=== PATIENT | male | born 1995 | race Caucasian/White ===

== ENCOUNTER 2020-07-09 06:18 | Emergency (ER) | payer BC, OTHER ==
[2020-07-09 06:45] VITALS: BP 128/84; PULSE 65
--- NOTE | 2020-07-09 07:35 | EDM.PDOC ---
ED HPI GENERAL MEDICAL PROBLEM - General Chief Complaint: Eye Problems Stated Complaint: L EYE SWOLLEN/RED Time Seen by Provider: 07/09/20 07:26 - History of Present Illness INITIAL COMMENTS - FREE TEXT/NARRATIVE: 24-year-old male presents the emergency room with eye discomfort. This started a couple days ago and some irritation to his left eye. He is noticed increased tearing from the eye. No purulent drainage. He cannot recall getting foreign body in his eye. His right eye is normal. Patient states he has had some upper airway congestion and a runny nose. Left Eye Pain Score (Numeric/FACES): 1 - Related Data Allergies Allergy/AdvReac Type Severity Reaction Status Date / Time No Known Allergies Allergy Verified 07/09/20 06:45 Home Meds: Home Meds Gentamicin [Garamycin 0.3% Ophth Soln] 5 ml EYELF ASDIRECTED #1 bottle 07/09/20 [Rx] Past Medical History - Past Health History Medical/Surgical History: Denies Medical/Surgical History Musculoskeletal History: Reports: Back Pain, Chronic - Infectious Disease History Infectious Disease History: Reports: MRSA, Other (See Below) Other Infectious Disease History: right knee - Past Surgical History Male Surgical History: Reports: Circumcision Social & Family History - Tobacco Use Smoking Status *Q: Never Smoker Second Hand Smoke Exposure: No - Caffeine Use Caffeine Use: Reports: None - Recreational Drug Use Recreational Drug Use: Yes Recreational Drug Type: Reports: Marijuana/Hashish Recreational Drug Use Frequency: Binges ED ROS GENERAL - Review of Systems Review Of Systems: See Below Constitutional: Reports: No Symptoms HEENT: Reports: Eye Discharge, Rhinitis Respiratory: Reports: No Symptoms Cardiovascular: Reports: No Symptoms GI/Abdominal: Reports: No Symptoms : Reports: No Symptoms Neurological: Reports: No Symptoms ED EXAM GENERAL W FULL EYE - Physical Exam Exam: See Below Exam Limited By: No Limitations General Appearance: Alert, No Apparent Distress Eye Exam: Left Eye: Conjunctival Injection Visual Acuity (L) 20/: 15 With Correction: No Eyelids: Right: Normal Appearance, Left: Edema, Erythema (Minimal), Lid Everted for Exam Conjunctiva & Sclera: Left: Conjunctival Edema, Discharge (Watery) Cornea Exam: Left: Normal Appearance, Examined with Flourescein (No dendritic changes, no evidence of fluorescein uptake.) Extraocular Movements: Bilateral: Intact Pupils: Normal Accommodation Pupillary Size: Bilateral: 4 mm Pupillary Reaction: Bilateral: Brisk Anterior Chamber: Left: Normal Appearance Ears: Normal External Exam, Normal Canal, Hearing Grossly Normal, Normal TMs Nose: Normal Inspection, Normal Mucosa, No Blood Throat/Mouth: Normal Inspection, Normal Lips, Normal Teeth, Normal Gums, Normal Oropharynx, Normal Voice, No Airway Compromise Head: Atraumatic, Normocephalic Neck: Normal Inspection, Supple, Non-Tender, Full Range of Motion. No: Lymphadenopathy (L), Lymphadenopathy (R) Respiratory/Chest: No Respiratory Distress, Lungs Clear, Normal Breath Sounds Cardiovascular: Regular Rate, Rhythm, No Murmur Course - Vital Signs Last Recorded V/S: Last Vital Signs Temp 36.4 C 07/09/20 06:40 Pulse 65 07/09/20 06:40 Resp 20 07/09/20 06:40 BP 128/84 07/09/20 06:40 Pulse Ox 100 07/09/20 06:40 - Orders/Labs/Meds Meds: Medications Discontinued Medications Generic Name Dose Route Start Last Admin Trade Name Phuong PRN Reason Stop Dose Admin Fluorescein Sodium 1 mg 07/09/20 07:36 07/09/20 07:44 Ful-Pamela EYELF 07/09/20 07:37 1 mg ONETIME ONE Administration Proparacaine HCl 0.1 ml 07/09/20 07:36 07/09/20 07:44 Proparacaine 0.5% Ophth Soln EYELF 07/09/20 07:37 0.1 ml ONETIME ONE Administration Departure - Departure Time of Disposition: 07:57 Disposition: Home, Self-Care 01 Clinical Impression: Conjunctivitis - Discharge Information Referrals: Alvaro Chavez PA-C [Primary Care Provider] - Forms: ED Department Discharge Additional Instructions: Return to the emergency room with any questions problems or worsening symptoms. You have been started on an eyedrop. This is gentamicin ophthalmic solution 1 to 2 drops 4 times daily to the left eye. Use warm moist compresses to your eye every 1-1/2 to 2 hours while awake. Follow-up with 1 of the local eye doctors on Sunday if not significantly better. Sepsis Event Note (ED) - Evaluation Sepsis Screening Result: No Definite Risk - Focused Exam Vital Signs: Vital Signs Temp Pulse Resp BP Pulse Ox 08/28/20 06:40 36.4 C 65 20 128/84 100
[2020-07-09] MEDS ORDERED: Proparacaine 0.5% Ophth Soln 15 ML Bottle EYELF ONE (07:36)
[2020-07-09] MEDS ORDERED: Fluorescein 1 MG Ophth Strip EYELF ONE (07:36)
== END 2020-07-09 08:20 | disposition home or self-care (01) ==
LOC: JD.ED 06:18
DX: H10.9 Unspecified conjunctivitis (principal)
CPT/HCPCS: 99282; 99283

== ENCOUNTER 2023-07-13 22:12 | Emergency (ER) | payer BC, OTHER ==
[2023-07-13] MEDS ORDERED: Sodium Chloride 0.9% 1,000 ML IV SCH (22:45)
[2023-07-14 06:14] VITALS: BP 113/65; PULSE 72
== END 2023-07-14 06:56 | disposition home or self-care (01) ==
LOC: JD.ED 22:12
DX: F10.929 Alcohol use, unspecified with intoxication, unspecified (principal); F12.90 Cannabis use, unspecified, uncomplicated; F17.290 Nicotine dependence, other tobacco product, uncomplicated
CPT/HCPCS: 99284; J7030

== ENCOUNTER 2023-09-29 11:12 | Inpatient (IN) | payer OTHER ==
[2023-09-29] MEDS ORDERED: Sodium Chloride 0.9% 10 ML Syringe FLUSH PRN (12:13)
[2023-09-29] MEDS ORDERED: cefTRIAXone 2 GM in Sodium Chloride 0.9% 100 ML IV ONE (12:34)
[2023-09-29] MEDS ORDERED: metroNIDAZOLE/Normal Saline 500 MG in Premix Bag 1 BAG IV ONE (12:34)
[2023-09-29] MEDS: Lactated Ringers 1,000 ML IV SCH ×2 (12:53→21:57)
[2023-09-29] MEDS: Benzocaine 20% Topical Spray UD MUCMEM ONE ×2 (12:57→13:40)
[2023-09-29] MEDS ORDERED: fentaNYL 250 MCG/5 ML SDV ONE (13:03)
[2023-09-29] MEDS ORDERED: Succinylcholine 200 MG/10 ML MDV ONE (13:03)
[2023-09-29] MEDS ORDERED: Midazolam 1 MG/ML 2 ML SDV ONE (13:03)
[2023-09-29] MEDS ORDERED: Lidocaine 1% 6 ML ONE (13:03)
[2023-09-29] MEDS ORDERED: Ondansetron 4 MG/2 ML SDV ONE (13:04)
[2023-09-29] MEDS ORDERED: Propofol 200 MG/20 ML SDV ONE ×2 (13:04→14:02)
[2023-09-29] MEDS ORDERED: Rocuronium 50 MG/5 ML Vial ONE (13:06)
[2023-09-29] MEDS ORDERED: Bupivacaine 0.5% 30 ML SDV ONE (13:15)
[2023-09-29] MEDS ORDERED: Lidocaine 1% 30 ML SDV ONE (13:15)
[2023-09-29] MEDS ORDERED: EPINEPHrine 1 MG/ML SDV ONE (13:15)
[2023-09-29] MEDS ORDERED: Naloxone 0.4 MG/ML SDV IVPUSH PRN (13:20)
[2023-09-29] MEDS ORDERED: Ondansetron 4 MG/2 ML SDV IVPUSH PRN (13:20)
[2023-09-29] MEDS ORDERED: dexmedeTOMIDine HCl 200 MCG/2 ML SDV ONE (13:41)
[2023-09-29 14:05] LABS: A/G RATIO 1.3 (1-2); ALBUMIN 4.4 g/dl (3.4-5.0); ANION GAP 15.9 (5-15); BILIRUBIN TOTAL 1.4 mg/dL (0.2-1.0); CALCIUM 9.3 mg/dL (8.5-10.1); EST CRCL DRUG DOSING (CG) 139.84 mL/min; POTASSIUM,K 3.9 mEq/L (3.5-5.1); PROTEIN TOTAL,TP 7.9 g/dl (6.4-8.2)
[2023-09-29] MEDS ORDERED: Lactated Ringers 1,000 ML ONE ×2 (14:28→15:22)
[2023-09-29] MEDS ORDERED: Ketamine 200 MG/20 ML MDV ONE (14:52)
[2023-09-29] MEDS ORDERED: HYDROmorphone 0.5 MG/0.5 ML Syringe IVPUSH PRN (14:55)
[2023-09-29] MEDS ORDERED: fentaNYL 100 MCG/2 ML SDV IVPUSH PRN (14:55)
[2023-09-29] MEDS ORDERED: Neostigmine Methylsulfate 10 MG/10 ML MDV ONE (15:08)
[2023-09-29] MEDS ORDERED: fentaNYL 100 MCG/2 ML SDV ONE (15:18)
[2023-09-29] MEDS ORDERED: Ropivacaine 0.5% 5 MG/ML 30 ML SDV ONE (15:56)
[2023-09-29] MEDS ORDERED: Dexamethasone 4 MG/ML 5 ML MDV ONE (16:06)
[2023-09-29] MEDS: Morphine 2 MG/ML SYRINGE IVPUSH PRN (21:57)
[2023-09-29] MEDS ORDERED: Benzocaine 20% Topical Spray UD MUCMEM ONE (22:28)
[2023-09-29] MEDS: Heparin Sodium 5,000 Units/ML Vial SUBCUT SCH (23:00)
[2023-09-30] MEDS: Morphine 2 MG/ML SYRINGE IVPUSH PRN ×7 (03:32→21:45)
[2023-09-30] MEDS: Benzocaine 20% Topical Spray UD MUCMEM PRN ×5 (03:39→23:51)
[2023-09-30 05:23] LABS: BASOPHILS PERCENT AUTO 0.1 % (0.0-1.0); HEMATOCRIT 41.5 % (42.0-52.0); HEMOGLOBIN 14.8 gm/dl (14.0-18.0); IMMATURE GRAN ABSOLUTE AUTO 0.03 K/mm3 (0.00-0.05); IMMATURE GRAN PERCENT AUTO 0.3 % (0.0-0.4); LYMPHOCYTES ABSOLUTE AUTO 0.9 K/mm3 (1.0-4.8); LYMPHOCYTES PERCENT AUTO 8.8 % (24.0-44.0); MEAN CORPUSCULAR HEMOGLOBIN 32.5 pg (28.0-32.0); MEAN CORPUSCULAR HGB CONC 35.7 g/dl (32.0-36.0); MEAN PLATELET VOLUME 9.6 fl (9.4-12.4); MONOCYTES ABSOLUTE AUTO 0.7 K/mm3 (0.0-0.8); MONOCYTES PERCENT AUTO 6.7 % (0.0-8.0); NEUTROPHILS ABSOLUTE AUTO 8.1 K/mm3 (1.8-7.7); NEUTROPHILS PERCENT AUTO 84.1 % (41.0-71.0); PLATELET COUNT,PLT 271 K/mm3 (150-400); RED BLOOD CELL COUNT 4.56 M/mm3 (4.52-5.90); WHITE BLOOD CELL COUNT,WBC 9.67 K/mm3 (3.9-11.3)
[2023-09-30 05:45] LABS: A/G RATIO 1.1 (1-2); ALBUMIN 3.5 g/dl (3.4-5.0); ANION GAP 12.9 (5-15); BILIRUBIN TOTAL 1.7 mg/dL (0.2-1.0); CALCIUM 8.9 mg/dL (8.5-10.1); EST CRCL DRUG DOSING (CG) 139.84 mL/min; POTASSIUM,K 3.9 mEq/L (3.5-5.1); PROTEIN TOTAL,TP 6.6 g/dl (6.4-8.2)
[2023-09-30] MEDS: Lactated Ringers 1,000 ML IV SCH (06:38)
[2023-09-30] MEDS: Heparin Sodium 5,000 Units/ML Vial SUBCUT SCH ×3 (06:39→22:00)
[2023-09-30] MEDS: Pantoprazole 40 MG Vial IVPUSH SCH (09:13)
[2023-09-30] MEDS: Dextrose 5%-0.45% NaCl 1,000 ML IV SCH ×2 (15:02→23:53)
[2023-10-01] MEDS: Morphine 2 MG/ML SYRINGE IVPUSH PRN ×5 (03:31→19:53)
[2023-10-01 05:53] LABS: BASOPHILS PERCENT AUTO 0.1 % (0.0-1.0); EOSINOPHILS ABSOLUTE AUTO 0.1 K/mm3 (0.0-0.4); EOSINOPHILS PERCENT AUTO 1.6 % (0.0-6.0); HEMOGLOBIN 14.4 gm/dl (14.0-18.0); IMMATURE GRAN ABSOLUTE AUTO 0.02 K/mm3 (0.00-0.05); IMMATURE GRAN PERCENT AUTO 0.3 % (0.0-0.4); LYMPHOCYTES ABSOLUTE AUTO 2.3 K/mm3 (1.0-4.8); LYMPHOCYTES PERCENT AUTO 31.3 % (24.0-44.0); MEAN CORPUSCULAR HEMOGLOBIN 31.9 pg (28.0-32.0); MEAN CORPUSCULAR HGB CONC 35.1 g/dl (32.0-36.0); MEAN CORPUSCULAR VOLUME 90.7 fl (83.0-99.0); MEAN PLATELET VOLUME 10.1 fl (9.4-12.4); MONOCYTES ABSOLUTE AUTO 0.8 K/mm3 (0.0-0.8); MONOCYTES PERCENT AUTO 11.3 % (0.0-8.0); NEUTROPHILS ABSOLUTE AUTO 4.1 K/mm3 (1.8-7.7); NEUTROPHILS PERCENT AUTO 55.4 % (41.0-71.0); PLATELET COUNT,PLT 240 K/mm3 (150-400); RED BLOOD CELL COUNT 4.52 M/mm3 (4.52-5.90); WHITE BLOOD CELL COUNT,WBC 7.41 K/mm3 (3.9-11.3)
[2023-10-01] MEDS: Heparin Sodium 5,000 Units/ML Vial SUBCUT SCH ×3 (06:03→23:15)
[2023-10-01 06:19] LABS: ALBUMIN 3.4 g/dl (3.4-5.0); ANION GAP 11.1 (5-15); BILIRUBIN TOTAL 1.6 mg/dL (0.2-1.0); BUN/CREATININE RATIO 11.8 (14-18); CALCIUM 8.8 mg/dL (8.5-10.1); CREATININE 1.1 mg/dL (0.7-1.3); EST CRCL DRUG DOSING (CG) 127.13 mL/min; POTASSIUM,K 3.1 mEq/L (3.5-5.1); PROTEIN TOTAL,TP 6.7 g/dl (6.4-8.2)
[2023-10-01] MEDS: Dextrose 5%-0.45% NaCl 1,000 ML IV SCH ×2 (08:06→17:38)
[2023-10-01] MEDS: Pantoprazole 40 MG Vial IVPUSH SCH (08:06)
[2023-10-01] MEDS: Potassium Chloride 10 MEQ in Premix Bag 1 BAG IV SCH ×4 (08:18→11:28)
[2023-10-01] MEDS: Acetaminophen/HYDROcodone 325-10 MG Tab PO PRN (19:54)
[2023-10-02] MEDS: Dextrose 5%-0.45% NaCl 1,000 ML IV SCH ×3 (02:46→22:23)
[2023-10-02 05:25] LABS: BASOPHILS PERCENT AUTO 0.2 % (0.0-1.0); EOSINOPHILS ABSOLUTE AUTO 0.3 K/mm3 (0.0-0.4); EOSINOPHILS PERCENT AUTO 6.1 % (0.0-6.0); HEMATOCRIT 40.7 % (42.0-52.0); HEMOGLOBIN 14.2 gm/dl (14.0-18.0); IMMATURE GRAN ABSOLUTE AUTO 0.01 K/mm3 (0.00-0.05); IMMATURE GRAN PERCENT AUTO 0.2 % (0.0-0.4); LYMPHOCYTES ABSOLUTE AUTO 1.9 K/mm3 (1.0-4.8); LYMPHOCYTES PERCENT AUTO 36.4 % (24.0-44.0); MEAN CORPUSCULAR HEMOGLOBIN 31.5 pg (28.0-32.0); MEAN CORPUSCULAR HGB CONC 34.9 g/dl (32.0-36.0); MEAN CORPUSCULAR VOLUME 90.2 fl (83.0-99.0); MEAN PLATELET VOLUME 10.1 fl (9.4-12.4); MONOCYTES ABSOLUTE AUTO 0.6 K/mm3 (0.0-0.8); MONOCYTES PERCENT AUTO 12.4 % (0.0-8.0); NEUTROPHILS ABSOLUTE AUTO 2.3 K/mm3 (1.8-7.7); NEUTROPHILS PERCENT AUTO 44.7 % (41.0-71.0); PLATELET COUNT,PLT 236 K/mm3 (150-400); RED BLOOD CELL COUNT 4.51 M/mm3 (4.52-5.90); WHITE BLOOD CELL COUNT,WBC 5.08 K/mm3 (3.9-11.3)
[2023-10-02 05:46] LABS: A/G RATIO 0.9 (1-2); ALBUMIN 3.3 g/dl (3.4-5.0); ANION GAP 14.4 (5-15); BILIRUBIN TOTAL 1.4 mg/dL (0.2-1.0); CALCIUM 8.8 mg/dL (8.5-10.1); EST CRCL DRUG DOSING (CG) 139.84 mL/min; POTASSIUM,K 3.4 mEq/L (3.5-5.1); PROTEIN TOTAL,TP 6.8 g/dl (6.4-8.2)
[2023-10-02] MEDS: Heparin Sodium 5,000 Units/ML Vial SUBCUT SCH ×3 (06:35→22:10)
[2023-10-02] MEDS: Acetaminophen/HYDROcodone 325-10 MG Tab PO PRN ×3 (06:36→22:09)
[2023-10-02] MEDS: Pantoprazole 40 MG Vial IVPUSH SCH (08:16)
[2023-10-03 06:20] LABS: BASOPHILS PERCENT AUTO 0.3 % (0.0-1.0); EOSINOPHILS ABSOLUTE AUTO 0.3 K/mm3 (0.0-0.4); EOSINOPHILS PERCENT AUTO 8.6 % (0.0-6.0); HEMATOCRIT 40.5 % (42.0-52.0); HEMOGLOBIN 14.4 gm/dl (14.0-18.0); IMMATURE GRAN ABSOLUTE AUTO 0.01 K/mm3 (0.00-0.05); IMMATURE GRAN PERCENT AUTO 0.3 % (0.0-0.4); LYMPHOCYTES ABSOLUTE AUTO 1.7 K/mm3 (1.0-4.8); LYMPHOCYTES PERCENT AUTO 44.5 % (24.0-44.0); MEAN CORPUSCULAR HEMOGLOBIN 31.4 pg (28.0-32.0); MEAN CORPUSCULAR HGB CONC 35.6 g/dl (32.0-36.0); MEAN CORPUSCULAR VOLUME 88.4 fl (83.0-99.0); MEAN PLATELET VOLUME 9.5 fl (9.4-12.4); MONOCYTES ABSOLUTE AUTO 0.5 K/mm3 (0.0-0.8); MONOCYTES PERCENT AUTO 12.6 % (0.0-8.0); NEUTROPHILS ABSOLUTE AUTO 1.3 K/mm3 (1.8-7.7); NEUTROPHILS PERCENT AUTO 33.7 % (41.0-71.0); PLATELET COUNT,PLT 260 K/mm3 (150-400); RED BLOOD CELL COUNT 4.58 M/mm3 (4.52-5.90); WHITE BLOOD CELL COUNT,WBC 3.82 K/mm3 (3.9-11.3)
[2023-10-03 06:40] LABS: ALBUMIN 3.3 g/dl (3.4-5.0); ANION GAP 13.4 (5-15); BILIRUBIN TOTAL 1.3 mg/dL (0.2-1.0); BUN/CREATININE RATIO 7.8 (14-18); CREATININE 0.9 mg/dL (0.7-1.3); EST CRCL DRUG DOSING (CG) 155.38 mL/min; POTASSIUM,K 3.4 mEq/L (3.5-5.1); PROTEIN TOTAL,TP 6.7 g/dl (6.4-8.2)
[2023-10-03] MEDS: Heparin Sodium 5,000 Units/ML Vial SUBCUT SCH (07:55)
[2023-10-03] MEDS: Pantoprazole 40 MG Vial IVPUSH SCH (08:45)
[2023-10-03] MEDS: Dextrose 5%-0.45% NaCl 1,000 ML IV SCH (08:53)
[2023-10-03] MEDS: Acetaminophen/HYDROcodone 325-10 MG Tab PO PRN (08:57)
[2023-10-03 13:58] VITALS: BP 125/70; PULSE 54
== END 2023-10-03 14:23 | disposition home or self-care (01) | DRG 337 ==
LOC: JD.ED 11:12 → JD.SDS 13:23 → JD.MS 16:54
PROVIDERS: ADMIT Surgery; ATTEND Specialist
PROC: 0DN80ZZ Release Small Intestine, Open Approach (ICD-10-PCS; principal; 2023-09-29 13:45)
PROC: 0DH67UZ Insertion of Feeding Device into Stomach, Via Natural or Artificial Opening (ICD-10-PCS; 2023-10-01)
DX: K56.50 Intestinal adhesions [bands], unspecified as to partial versus complete obstruction (principal); K56.7 Ileus, unspecified; Z86.14 Personal history of Methicillin resistant Staphylococcus aureus infection
CPT/HCPCS: 00790; 36415; 43752-52; 64488; 80053; 82947; 85025; 87641; 99140; 99284; A9270-GY; C9113; J0171; J0330; J0696; J1100; J1170; J1644; J1836; J2250; J2270; J2405; J2704; J2710; J2795; J3010; J3480; J3490; J7042; J7120